=== PATIENT | female | born 1980 | race Caucasian/White ===

== ENCOUNTER 2017-01-26 07:29 | Day surgery (SDC) | payer BC ==
[2017-01-21 14:42] VITALS: BMI 22.8
[~2017-01-26 07:29] MED LIST: DEXAMETHASONE SOD PHOSPHATE 10 MG/ML 1 ML VIAL IV ONE; DEXAMETHASONE SOD PHOSPHATE 4 MG/ML 1 ML VIAL IV ONE; MIDAZOLAM 2 MG/2 ML VIAL IV PRN; ONDANSETRON 4 MG/2 ML VIAL IVP ONE; ceFAZolin 1,000 MG in DEXTROSE/WATER 1 50ML.BAG IV ONE
[2017-01-26] MEDS: OXYMETAZOLINE 0.05% NASL SPRAY 15 ML NASAL ONE ×6 (07:50→08:20)
[2017-01-26] MEDS: LACTATED RINGERS 1,000 ML IV SCH ×2 (08:10→10:05)
[2017-01-26] MEDS ORDERED: LIDOCAINE 1% INJ 10MG/ML (20 ML MDV) ONE (08:44)
[2017-01-26] MEDS ORDERED: fentaNYL (PF) 50 MCG/ML 2 ML AMP ONE (08:44)
[2017-01-26] MEDS ORDERED: SUCCINYLCHOLINE CHLORIDE 100 MG/5 ML SYR IV ONE (08:44)
[2017-01-26] MEDS ORDERED: MIDAZOLAM 2 MG/2 ML VIAL ONE (08:44)
[2017-01-26] MEDS ORDERED: PROPOFOL 10 MG/ML 20 ML VIAL IV ONE (08:44)
[2017-01-26] MEDS ORDERED: LIDOCAINE 1%-EPI 1:100,000 20 ML VIAL SUBMUCOSAL ONE ×2 (09:06)
--- NOTE | 2017-01-26 09:51 | P.OP ---
Date of Procedure: 01/26/17 Preoperative Diagnosis: Deviated nasal septum Inferior turbinate hypertrophy Chronic sinusitis Postoperative Diagnosis: Same Procedure(s) Performed: Septoplasty Outfracture and submucous resection of the inferior turbinates Bilateral endoscopic sinus surgery including bile max antrostomy with removal of tissue from the maxillary sinuses, bilateral anterior and posterior ethmoidectomy, right judith bullectomy Anesthesia: RAFIA Surgeon: Carl Aguiar Estimated Blood Loss (ml): 100 Pathology: other (Nasal septoplasty and sinus contents) Condition: stable Disposition: PACU Indications for Procedure: This is a 36-year-old white female who has chronic nasal airway obstruction congestion and drainage as well as recurrent sinus infections Operative Findings: Nasal septum deviated to the left, inferior turbinate hypertrophy bilaterally, chronic sinusitis involving the maxillary ostium bilaterally which were obstructed small polyps in the bilateral maxillary sinuses and mucosal thickening throughout the ethmoid sinuses as well as a right judith bullosa cell Description of Procedure: The patient was brought in the operative suite and placed in a supine position. The patient underwent induction of general anesthesia with oral endotracheal intubation without difficulty. The orbits were in the operating field for monitoring throughout the case. The computed tomography scan was on the computer screen for review throughout the case. 1% lidocaine with 1 100,000 epinephrine was infused submucosally both sides nasal septum lateral nasal webber anterior tips the middle turbinates bilaterally. While this was taking vasoconstrictive effect the inferior turbinates were infractured with the [place] elevator partial submucous resection inferior turbinates performed with microdebrider 2 mm blade removing a portion of the submucosal soft tissue and inferior turbinate bone and then outfractured with [place] elevator. A left hemitransfixion incision was made with the mucoperichondrial and mucoperiosteal flap on the left elevated. Bony cartilaginous junction was disarticulated and the mucoperiosteal flap on the right was elevated. Bony nasal septal deformities were removed Shayla forceps. An inferior cartilaginous strip was removed leaving a full 1.5 centimeter caudal strut. Checking intranasally this corrected nasal septal deformities and the hemitransfixion incision was closed running 4-0 chromic suture. Full endoscopic visualization was then performed and inspection with the 0 endoscope. Beginning on the left the middle turbinate was medialized with a [place] elevator. Next ostium was located with a ballpoint probe and infundibulotomy was performed followed by uncinectomy. The maxillary sinus was opened at the expense of the anterior posterior fontanelle taking care anteriorly not to injure the lacrimal bone. Infundibulotomy and uncinectomy were performed with microdebrider. Maxillary sinus evaluated with the 30 endoscope and small polyps removed with giraffe forceps. An anterior and posterior fontanelle were then performed from anterior to posterior with the microdebrider with the roof the anterior ethmoid air cells cleaned with up- biting [place] forceps. The nasofrontal duct was noted to be open. Attention was then turned to the right where the procedures were followed as they were on the left with the addition of a judith judith bullectomy opening the lateral one half of the middle turbinate. Infundibulotomy uncinectomy maxillary antrostomy with removal of tissue from the maxillary sinus anterior posterior ethmoidectomy were performed as they were on the left. Once this completed a combination of standard and firm nasal pore nasal dressings were placed in the middle meatus under direct visualization. Sarmiento airway splint was coated bacitracin ointment were placed in nasal cavities and sutured trans- septally with a 4-0 Vicryl suture. Patient was suctioned in oral gastric fashion and was then allowed to emerge from general anesthesia having tolerated procedure well she was extubated in the operating suite and transferred to postop recovery area in satisfactory condition.
[2017-01-26] MEDS ORDERED: METOCLOPRAMIDE 5 MG/ML 2 ML VIAL IVP ONE (09:58)
[2017-01-26 10:03] VITALS: TEMP 98
[2017-01-26] MEDS ORDERED: PROMETHAZINE INJ 25 MG/ML 1 ML VIAL IVPB ONE (10:06)
[2017-01-26 10:11] VITALS: RESP 16
[2017-01-26] MEDS: HYDROmorphone 1 MG/ML 1 ML SYRINGE IVP PRN ×2 (10:13→10:26)
[2017-01-26 11:51] VITALS: BP 132/83; PULSE 98
[2017-01-26] MEDS ORDERED: LACTATED RINGERS 1,000 ML IV ONE (12:17)
== END 2017-01-26 13:01 | disposition home or self-care (01) ==
LOC: OR 07:29
PROVIDERS: ATTEND Otolaryngology
DX: J32.8 Other chronic sinusitis (principal); J34.2 Deviated nasal septum; J34.3 Hypertrophy of nasal turbinates; F98.8 Other specified behavioral and emotional disorders with onset usually occurring in childhood and adolescence; Z79.899 Other long term (current) drug therapy
CPT/HCPCS: 81025; 88305; 88300; 30140; 30520; 31267; 31255; J2250; J1100; J2550; J2765; J2405; J2001; J3010; J1170; J0690; J0330; J2704

== ENCOUNTER → 2020-10-18 | Outpatient (CLI) | payer BC | END | disposition home or self-care (01) | LOC: LABMAIN 07:41 | PROVIDERS: ATTEND Emergency Medicine | DX: R05 Cough (principal) | CPT/HCPCS: 87635 ==

== ENCOUNTER 2021-04-29 01:23 | Emergency (ER) | payer BC ==
[2021-04-29] MEDS ORDERED: ONDANSETRON 4 MG ODT STARTER PACK 2 TAB BTL PO STA (01:34)
[2021-04-29] MEDS ORDERED: KETOROLAC 15 MG/ML 1 ML VIAL IM STA (01:34)
[2021-04-29] MEDS ORDERED: DEXAMETHASONE SOD PHOSPHATE 10 MG/ML 1 ML VIAL IM STA (01:34)
[2021-04-29 01:35] VITALS: BP 159/81; PULSE 91; RESP 18; TEMP 98.4
--- NOTE | 2021-04-29 01:35 | ED ---
General Adult HPI - General Stated complaint: ENT Time Seen by Provider: 04/29/21 01:25 - History of Present Illness Initial comments: 40 year-old female patient with history significant for environmental allergies presents to the emergency department for evaluation of "sinus" headache. States she is having pain over her maxillary and frontal region. Also reports pain down the left side of her head to her neck. Reports nasal congestion and head pressu re. Denies any fever or chills. Denies blurred or double vision. Reports some dizziness with bending over. States this headache is similar to sinus headaches she has had in the past. Denies any new symptoms. She is requesting injection of decadron, states this has worked well for her in the past. - Related Data Home Medications Medication Instructions Recorded Confirmed Aspirin/Acetaminophen/Caffeine 1 each PO DIRECTED PRN 01/21/17 01/26/17 [Excedrin Migraine Caplet] Cetirizine HCl [Zyrtec] 10 mg PO DAILY 01/21/17 01/26/17 Dextroamphetamine/Amphetamine 20 mg PO BID 01/21/17 01/26/17 [Adderall] Ibuprofen [Motrin] 200 - 400 mg PO Q6HR PRN 01/21/17 01/26/17 Melatonin 2.5 mg PO HS 01/21/17 01/26/17 Allergies Allergy/AdvReac Type Severity Reaction Status Date / Time No Known Allergies Allergy Verified 04/29/21 01:33 Review of Systems ROS Statement: Those systems with pertinent positive or pertinent negative responses have been documented in the HPI. ROS Other: All systems not noted in ROS Statement are negative. Past Medical History Past Medical History: Thyroid Disorder Additional Past Medical History / Comment(s): SINUS PROB, FOUNTAIN'S. ASH'S, NO TX YET. VARICOSE VEINS. History of Any Multi-Drug Resistant Organisms: None Reported Past Surgical History: Tonsillectomy Additional Past Surgical History / Comment(s): VEIN STRIPPING X2. LASIK RT EYE. Past Anesthesia/Blood Transfusion Reactions: No Reported Reaction Additional Past Anesthesia/Blood Transfusion Reaction / Comment(s): PONV R/T PAIN RX GIVEN IV. Past Psychological History: ADD/ADHD Past Alcohol Use History: Occasional Additional Past Alcohol Use History / Comment(s): SMOKED 15 YRS, 1 PPD EST, QUIT 08/2014. Past Drug Use History: None Reported - Past Family History Mother Family Medical History: No Reported History General Exam General appearance: alert, in no apparent distress, other (This is a well- developed, well-nourished adult female patient in no acute distress.) Eye exam: Present: normal appearance, PERRL, EOMI. Absent: scleral icterus, conjunctival injection, periorbital swelling ENT exam: Present: normal exam, normal oropharynx, mucous membranes moist. Absent: TM's normal bilaterally (There is fluid behind right tympanic membranes) Respiratory exam: Present: normal lung sounds bilaterally. Absent: respiratory distress, wheezes, rales, rhonchi, stridor Cardiovascular Exam: Present: regular rate, normal rhythm, normal heart sounds. Absent: systolic murmur, diastolic murmur, rubs, gallop, clicks Neurological exam: Present: alert, oriented X3, CN II-XII intact Psychiatric exam: Present: normal affect, normal mood Skin exam: Present: warm, dry, intact, normal color. Absent: rash Course Vital Signs 04/29/21 01:33 Temperature 98.4 F Pulse Rate 91 Respiratory 18 Rate Blood Pressure 159/81 O2 Sat by Pulse 99 Oximetry Medical Decision Making - Medical Decision Making 40-year-old female patient presents to the emergency department today for angela luation of sinus headache. Requesting injection of Decadron. Physical examination is unremarkable. She is neurologically intact with no focal deficits. She is given an injection of Decadron and Toradol. She'll be discharged HER primary care physician for recheck in 1-2 days. Return parameters discussed in detail. She verbalizes understanding and agrees with this plan. My attending is Dr. Abraham. Disposition Clinical Impression: Sinusitis, Headache Disposition: HOME SELF-CARE Condition: Good Instructions (If sedation given, give patient instructions): Sinusitis (ED), Acute Headache (ED) Is patient prescribed a controlled substance at d/c from ED?: No Referrals: Julien Franco DO [Primary Care Provider] - 1-2 days Time of Disposition: 01:35
== END 2021-04-29 01:49 | disposition home or self-care (01) ==
LOC: EC 01:23
DX: J32.9 Chronic sinusitis, unspecified (principal); M54.2 Cervicalgia; R42 Dizziness and giddiness; F90.9 Attention-deficit hyperactivity disorder, unspecified type; Z79.82 Long term (current) use of aspirin; Z79.1 Long term (current) use of non-steroidal anti-inflammatories (NSAID); Z87.891 Personal history of nicotine dependence
CPT/HCPCS: 99283; 96372 ×2; J1100; J1885; S0119

== ENCOUNTER 2021-12-23 03:41 | Emergency (ER) | payer BC ==
[2021-12-23 03:51] VITALS: BP 161/90; PULSE 90; RESP 19; TEMP 98
[2021-12-23] MEDS ORDERED: DEXAMETHASONE SOD PHOSPHATE 10 MG/ML 1 ML VIAL IM STA (03:51)
--- NOTE | 2021-12-23 04:20 | ED ---
URI HPI - General Chief Complaint: Upper Respiratory Infection Stated Complaint: Headache Time Seen by Provider: 12/23/21 04:19 Source: patient Mode of arrival: ambulatory - History of Present Illness MD Complaint: nasal congestion, sinus pain -: days(s) Severity: moderate Quality: dull, aching Consistency: constant Improves With: nothing Worsens With: nothing Associated Symptoms: denies other symptoms - Related Data Home Medications Medication Instructions Recorded Confirmed Aspirin/Acetaminophen/Caffeine 1 each PO DIRECTED PRN 01/21/17 01/26/17 [Excedrin Migraine Caplet] Cetirizine HCl [Zyrtec] 10 mg PO DAILY 01/21/17 01/26/17 Dextroamphetamine/Amphetamine 20 mg PO BID 01/21/17 01/26/17 [Adderall] Ibuprofen [Motrin] 200 - 400 mg PO Q6HR PRN 01/21/17 01/26/17 Melatonin 2.5 mg PO HS 01/21/17 01/26/17 Allergies Allergy/AdvReac Type Severity Reaction Status Date / Time No Known Allergies Allergy Verified 12/23/21 03:51 Review of Systems ROS Statement: Those systems with pertinent positive or pertinent negative responses have been documented in the HPI. ROS Other: All systems not noted in ROS Statement are negative. Constitutional: Denies: fever, chills Eyes: Denies: eye pain, vision change ENT: Reports: congestion. Denies: ear pain, throat pain, hearing loss, epistaxis Respiratory: Denies: cough, dyspnea Past Medical History Past Medical History: Thyroid Disorder Additional Past Medical History / Comment(s): SINUS PROB, FOUNTAIN'S. ASH'S, NO TX YET. VARICOSE VEINS. History of Any Multi-Drug Resistant Organisms: None Reported Past Surgical History: Tonsillectomy Additional Past Surgical History / Comment(s): VEIN STRIPPING X2. LASIK RT EYE. Past Anesthesia/Blood Transfusion Reactions: No Reported Reaction Additional Past Anesthesia/Blood Transfusion Reaction / Comment(s): PONV R/T PAIN RX GIVEN IV. Past Psychological History: ADD/ADHD Smoking Status: Never smoker Past Alcohol Use History: Occasional Past Drug Use History: None Reported - Past Family History Mother Family Medical History: No Reported History General Exam General appearance: alert, in no apparent distress Head exam: Present: atraumatic, normocephalic Eye exam: Present: normal appearance, EOMI. Absent: scleral icterus, conjunctival injection ENT exam: Present: normal oropharynx, mucous membranes moist Neurological exam: Present: alert Skin exam: Present: warm, dry, intact, normal color. Absent: rash Course Vital Signs 12/23/21 03:48 Temperature 98 F Pulse Rate 90 Respiratory 19 Rate Blood Pressure 161/90 O2 Sat by Pulse 100 Oximetry Disposition Clinical Impression: Sinusitis Disposition: HOME SELF-CARE Condition: Good Instructions (If sedation given, give patient instructions): Sinusitis (ED) Is patient prescribed a controlled substance at d/c from ED?: No Referrals: Julien Franco DO [Primary Care Provider] - 1-2 days
== END 2021-12-23 04:20 | disposition home or self-care (01) ==
LOC: EC 03:41
DX: J32.9 Chronic sinusitis, unspecified (principal); F90.9 Attention-deficit hyperactivity disorder, unspecified type; Z79.82 Long term (current) use of aspirin; Z79.899 Other long term (current) drug therapy
CPT/HCPCS: 99283; 96372; J1100

== ENCOUNTER 2022-02-21 15:31 | Emergency (ER) | payer BC ==
[2022-02-21 15:50] VITALS: RESP 18
[2022-02-21] MEDS ORDERED: IBUPROFEN 600 MG TAB PO STA (16:38)
[2022-02-21] MEDS ORDERED: BEBTELOVIMAB (EUA) 175 MG/2 ML VIAL IV ONE (17:15)
--- NOTE | 2022-02-21 18:18 | ED ---
General Adult HPI - General Chief complaint: Upper Respiratory Infection Stated complaint: Bodyaches,Fatigue,Sore Throat Time Seen by Provider: 02/21/22 16:01 Source: patient, RN notes reviewed Mode of arrival: ambulatory Limitations: no limitations - History of Present Illness Initial comments: 41-year-old female presents to the emergency department for evaluation of cough, sore throat, and body aches. Patient states she had a positive Covid test at home and is requesting the monoclonal antibody infusion. Patient is unvaccinated with her primary series, but is not boosted. 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 Denies shortness of breath, difficulty breathing, chest tightness, abdominal pain, nausea, vomiting, dysuria, and hematuria. - Related Data Home Medications Medication Instructions Recorded Confirmed Aspirin/Acetaminophen/Caffeine 1 each PO DIRECTED PRN 01/21/17 01/26/17 [Excedrin Migraine Caplet] Cetirizine HCl [Zyrtec] 10 mg PO DAILY 01/21/17 01/26/17 Dextroamphetamine/Amphetamine 20 mg PO BID 01/21/17 01/26/17 [Adderall] Ibuprofen [Motrin] 200 - 400 mg PO Q6HR PRN 01/21/17 01/26/17 Melatonin 2.5 mg PO HS 01/21/17 01/26/17 Allergies Allergy/AdvReac Type Severity Reaction Status Date / Time No Known Allergies Allergy Verified 02/21/22 15:51 Review of Systems ROS Statement: Those systems with pertinent positive or pertinent negative responses have been documented in the HPI. ROS Other: All systems not noted in ROS Statement are negative. Past Medical History Past Medical History: Thyroid Disorder Additional Past Medical History / Comment(s): SINUS PROB, FOUNTAIN'S. DEEJAY'S, NO [place] YET. VARICOSE VEINS. History of Any Multi-Drug Resistant Organisms: None Reported Past Surgical History: Tonsillectomy Additional Past Surgical History / Comment(s): VEIN STRIPPING X2. LASIK RT EYE. Past Anesthesia/Blood Transfusion Reactions: No Reported Reaction Additional Past Anesthesia/Blood Transfusion Reaction / Comment(s): PONV R/T PAIN RX GIVEN IV. Past Psychological History: ADD/ADHD Smoking Status: Never smoker Past Alcohol Use History: Occasional Past Drug Use History: None Reported - Past Family History Mother Family Medical History: No Reported History General Exam Limitations: no limitations (Well-developed, well-nourished female in no acute distress. Initial temperature 97.6, pulse 102, respirations 18, blood pressure 151/101, pulse ox 100% on room air.) General appearance: alert, in no apparent distress ENT exam: Present: normal exam, normal oropharynx, mucous membranes moist Respiratory exam: Present: normal lung sounds bilaterally. Absent: respiratory distress, wheezes, rales, rhonchi, stridor, chest wall tenderness Cardiovascular Exam: Present: regular rate, normal rhythm, normal heart sounds. Absent: systolic murmur, diastolic murmur, rubs, gallop, clicks GI/Abdominal exam: Present: soft, normal bowel sounds. Absent: distended, tenderness, guarding, rebound, rigid Neurological exam: Present: alert, oriented X3, CN II-XII intact Psychiatric exam: Present: normal affect, normal mood Skin exam: Present: warm, dry, intact, normal color. Absent: rash Course Vital Signs 02/21/22 15:44 Temperature 97.6 F Pulse Rate 102 H Respiratory 18 Rate Blood Pressure 151/101 O2 Sat by Pulse 100 Oximetry - Reevaluation(s) Reevaluation #1: 02/21/22 16:45 Patient qualifies for her monoclonal antibody infusion based on positive test, BMI greater than 25, and hypertension. Risks and benefits were discussed. Patient is requesting infusion. 02/21/22 18:15 Upon reevaluation, patient is resting comfortably and tolerated infusion without any adverse side effects. We've continued to monitor and will discharge one hour post-infusion. Medical Decision Making - Medical Decision Making 41-year-old female with a past medical history of Deejay's presents to the emergency department requesting that the monoclonal antibody infusion after testing positive for Covid. Upon exam, patient is well-appearing and in no acute distress. Her room air saturation is greater than 95% and she is afebrile. Lung sounds are clear to auscultation. Covid test is positive. She qualifies for infusion based on BMI and hypertension. Patient tolerated infusion without any adverse side effects. She was given Motrin for body aches. Instructed to follow up with her PCP for a recheck via telephone or video visit. 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 Return parameters were discussed in detail. Patient verbalizes understanding and agrees with this plan. Attending:Sonia. - Lab Data Lab Results 02/21/22 Range/Units 16:41 Coronavirus (PCR) Detected A (Not Detectd) Disposition Clinical Impression: COVID-19 Disposition: HOME SELF-CARE Condition: Stable Instructions (If sedation given, give patient instructions): COVID-19 (Coronavirus Disease 2019) (ED) Additional Instructions: Alternate Tylenol and Motrin as needed for fever. Isolate at home and follow return to work parameters as detailed by your employer. You are provided with a work note. Follow-up with your PCP for a recheck via telephone or video visit if needed this week. Return to the emergency department with any new, worsening, or concerning symptoms. Is patient prescribed a controlled substance at d/c from ED?: No Referrals: Julien Franco DO [Primary Care Provider] - 1-2 days Time of Disposition: 18:40
[2022-02-21 19:53] VITALS: BP 138/96; PULSE 87; TEMP 97.9
== END 2022-02-21 18:40 | disposition home or self-care (01) ==
LOC: EC 15:31
DX: U07.1 COVID-19 (principal); E07.9 Disorder of thyroid, unspecified; F90.9 Attention-deficit hyperactivity disorder, unspecified type; Z79.82 Long term (current) use of aspirin
CPT/HCPCS: 99283; 87635; Q0222

== ENCOUNTER 2023-09-19 17:34 | Observation (INO) | payer BC ==
[2023-09-19] MEDS ORDERED: ONDANSETRON 4 MG/2 ML VIAL IVP STA (18:50)
[2023-09-19] MEDS ORDERED: MORPHINE SULFATE 4 MG/ML SYRINGE IV STA (18:50)
--- NOTE | 2023-09-19 19:02 | ED ---
General Adult HPI - General Chief complaint: GI Bleed Stated complaint: rectum heavy bleeding stomach pain Time Seen by Provider: 09/19/23 18:06 Source: patient Mode of arrival: wheelchair Limitations: no limitations - History of Present Illness Initial comments: Dictation was produced using [employer] dictation software. please excuse any grammatical, word or spelling errors. Chief Complaint: 43-year-old female presents emergency Department with abdominal pain and bright red blood per rectum History of Present Illness: Is a 43-year-old female presents emergency Department with abdominal pain and bright red blood per rectum since yesterday. Patient states that she has been having bright red blood per rectum since yesterday. States that she's been having crampy lower abdominal pain. Denies any history of anticoagulation use. States that she's been passing blood clots. She does not complain of any rectal pain. No history of hemorrhoids. Has not had a colonoscopy. The ROS documented in this emergency department record has been reviewed and confirmed by me. Those systems with pertinent positive or negative responses have been documented in the HPI. All other systems are other negative and/or noncontributory. - Related Data Home Medications Medication Instructions Recorded Confirmed Aspirin/Acetaminophen/Caffeine 1 each PO DIRECTED PRN 01/21/17 01/26/17 [Excedrin Migraine Caplet] Cetirizine HCl [Zyrtec] 10 mg PO DAILY 01/21/17 01/26/17 Dextroamphetamine/Amphetamine 20 mg PO BID 01/21/17 01/26/17 [Adderall] Ibuprofen [Motrin] 200 - 400 mg PO Q6HR PRN 01/21/17 01/26/17 Melatonin 2.5 mg PO HS 01/21/17 01/26/17 Allergies Allergy/AdvReac Type Severity Reaction Status Date / Time No Known Allergies Allergy Verified 09/19/23 18:03 Review of Systems ROS Statement: Those systems with pertinent positive or pertinent negative responses have been documented in the HPI. ROS Other: All systems not noted in ROS Statement are negative. Past Medical History Past Medical History: Thyroid Disorder Additional Past Medical History / Comment(s): SINUS PROB, FOUNTAIN'S. ASH'S, NO TX YET. VARICOSE VEINS. History of Any Multi-Drug Resistant Organisms: None Reported Past Surgical History: Tonsillectomy Additional Past Surgical History / Comment(s): VEIN STRIPPING X2. LASIK RT EYE. Past Anesthesia/Blood Transfusion Reactions: No Reported Reaction Additional Past Anesthesia/Blood Transfusion Reaction / Comment(s): PONV R/T PAIN RX GIVEN IV. Past Psychological History: ADD/ADHD Smoking Status: Never smoker Past Alcohol Use History: Occasional Past Drug Use History: None Reported - Past Family History Mother Family Medical History: No Reported History General Exam - General Exam Comments Initial Comments: PHYSICAL EXAM: General Impression: Alert and oriented x3, not in acute distress HEENT: Normocephalic atraumatic, extra-ocular movements intact, pupils equal and reactive to light bilaterally, mucous membranes moist. Cardiovascular: Heart regular rate and rhythm Chest: Able to complete full sentences, no retractions, no tachypnea Abdomen: abdomen soft, palpatory tenderness to the lower abdomen, non-distended, no organomegaly Musculoskeletal: Pulses present and equal in all extremities, no peripheral edema Motor: no focal deficits noted Neurological: CN II-XII grossly intact, no focal motor or sensory deficits noted Skin: Intact with no visualized rashes Psych: Normal affect and mood Rectal exam deferred Limitations: no limitations Course Vital Signs 09/19/23 09/19/23 17:58 18:59 Temperature 97.7 F Pulse Rate 101 H 68 Respiratory 16 16 Rate Blood Pressure 154/86 156/103 O2 Sat by Pulse 98 98 Oximetry Medical Decision Making - Medical Decision Making Was pt. sent in by a medical professional or institution ([facility] Richards, EMERGENCY ROOM REGISTERED NURSE, urgent care, hospital, or fdc...) When possible be specific @ -No Did you speak to anyone other than the patient for history (EMS, parent, family, police, friend...)? What history was obtained from this source @ -No Did you review nursing and triage notes (agree or disagree)? Why? @ -I reviewed and agree with nursing and triage notes Were old charts reviewed (outside hosp., previous admission, EMS record, old EKG, old radiological studies, urgent care reports/EKG's, fdc records)? Report findings @ -No old charts were reviewed Differential Diagnosis (chest pain, altered mental status, abdominal pain women, abdominal pain men, vaginal bleeding, musculoskeletal, weakness, fever, dyspnea, syncope, headache, dizziness, GI bleed, back pain, seizure, CVA, palpatations, mental health)? @ -Differential Abdominal Pain Women: Appendicitis, Cholecystitis, diverticulosis, ischemic bowel, pancreatitis, hepa titis, UTI, gastroenteritis, AAA, incarcerated hernia, bowel obstruction, constipation, inflammatory bowel, hepatitis, peptic ulcer disease, splenic infarction, perforated viscus, vulvitis, ovarian torsion, PID, kidney stone, placenta abruption, this is not meant to be an all-inclusive list EKG interpreted by me (3pts min.). @ -None done X-rays interpreted by me (1pt min.). @ -None done CT interpreted by me (1pt min.). @ -CT of the abdomen and pelvis shows colitis U/S interpreted by me (1pt. min.). @ -None done What testing was considered but not performed or refused? (CT, X-rays, U/S, labs)? Why? @ -None What meds were considered but not given or refused? Why? @ -None Did you discuss the management of the patient with other professionals (pro fessionals i.e. , PA, EMERGENCY ROOM REGISTERED NURSE, lab, RT, psych nurse, psychiatric social worker, epic cadence specialists, teacher, port patrol officer, welfare case worker)? Give summary @ -Case discussed with hospitalist for admission Was smoking cessation discussed for >3mins.? @ -No Was critical care preformed (if so, how long)? @ -No Were there social determinants of health that impacted care today? How? (Homelessness, low income, unemployed, alcoholism, drug addiction, transportation, low edu. Level, literacy, decrease access to med. care, intermediate, rehab)? @ -No Was there de-escalation of care discussed even if they declined (Discuss DNR or withdrawal of care, Hospice)? DNR status @ -No What co-morbidities impacted this encounter? (DM, HTN, Smoking, COPD, CAD, Cancer, CVA, ARF, Chemo, Hep., AIDS, mental health diagnosis, sleep apnea, morbid obesity)? @ -None Was patient admitted / discharged? Hospital course, mention meds given and route, prescriptions, significant lab abnormalities, going to OR and other pertinent info. @ -43-year-old female presents emergency Department with abdominal pain and bright red blood per rectum. States that her symptoms have been increasing in intensity and severity since yesterday. Vital signs upon arrival are within acceptable limits. Labs are unremarkable. No leukocytosis. Computed tomography scan of the abdomen and pelvis shows colitis. Unclear cause of colitis. Disposition options were discussed with patient. We do [facility] this [facility]. Patient is agreeable for observation admission with GI consultation. Undiagnosed new problem with uncertain prognosis? @ -No Drug Therapy requiring intensive monitoring for toxicity (Heparin, Nitro, Insulin, Cardizem)? @ -No Were any procedures done? @ -No Diagnosis/symptom? Acute, or Chronic, or Acute on Chronic? Uncomplicated (without systemic symptoms) or Complicated (systemic symptoms)? @ -Colitis Side effects of treatment? @ -No Exacerbation, Progression, or Severe Exacerbation? @ -No Poses a threat to life or bodily function? How? (Chest pain, USA, CA, pneumonia, PE, COPD, DKA, ARF, appy, cholecystitis, CVA, Diverticulitis, Homicidal, Suicidal, threat to staff... and all critical care pts) @ -yes - Lab Data Result diagrams: 09/19/23 18:40 09/19/23 18:40 Lab Results 09/19/23 09/19/23 09/19/23 Range/Units 18:40 18:40 18:40 WBC 10.6 (3.8-10.6) k/uL RBC 4.53 (3.80-5.40) m/uL Hgb 14.1 (11.4-16.0) gm/dL Hct 42.4 (34.0-46.0) % MCV 93.7 (80.0-100.0) fL MCH 31.1 (25.0-35.0) pg MCHC 33.2 (31.0-37.0) g/dL RDW 12.4 (11.5-15.5) % Plt Count 311 (150-450) k/uL MPV 7.6 Neutrophils % 72 % Lymphocytes % 20 % Monocytes % 5 % Eosinophils % 1 % Basophils % 0 % Neutrophils # 7.6 (1.3-7.7) k/uL Lymphocytes # 2.1 (1.0-4.8) k/uL Monocytes # 0.6 (0-1.0) k/uL Eosinophils # 0.1 (0-0.7) k/uL Basophils # 0.0 (0-0.2) k/uL Sodium 138 (137-145) mmol/L Potassium 3.7 (3.5-5.1) mmol/L Chloride 103 (98-107) mmol/L Carbon Dioxide 26 (22-30) mmol/L Anion Gap 9 mmol/L BUN 8 (7-17) mg/dL Creatinine 0.60 (0.52-1.04) mg/dL Est GFR (CKD-EPI)AfAm >90 (>60 ml/min/1.73 sqM) Est GFR (CKD-EPI)NonAf >90 (>60 ml/min/1.73 sqM) Glucose 97 (74-99) mg/dL Calcium 9.2 (8.4-10.2) mg/dL Total Bilirubin 0.7 (0.2-1.3) mg/dL AST 24 (14-36) U/L ALT 17 (4-34) U/L Alkaline Phosphatase 63 (38-126) U/L Total Protein 7.0 (6.3-8.2) g/dL Albumin 4.3 (3.5-5.0) g/dL Blood Type Blood Type Confirm A Positive Blood Type Recheck Bld Type Recheck Status Antibody Screen Spec Expiration Date 09/19/23 Range/Units 18:45 WBC (3.8-10.6) k/uL RBC (3.80-5.40) m/uL Hgb (11.4-16.0) gm/dL Hct (34.0-46.0) % MCV (80.0-100.0) fL MCH (25.0-35.0) pg MCHC (31.0-37.0) g/dL RDW (11.5-15.5) % Plt Count (150-450) k/uL MPV Neutrophils % % Lymphocytes % % Monocytes % % Eosinophils % % Basophils % % Neutrophils # (1.3-7.7) k/uL Lymphocytes # (1.0-4.8) k/uL Monocytes # (0-1.0) k/uL Eosinophils # (0-0.7) k/uL Basophils # (0-0.2) k/uL Sodium (137-145) mmol/L Potassium (3.5-5.1) mmol/L Chloride (98-107) mmol/L Carbon Dioxide (22-30) mmol/L Anion Gap mmol/L BUN (7-17) mg/dL Creatinine (0.52-1.04) mg/dL Est GFR (CKD-EPI)AfAm (>60 ml/min/1.73 sqM) Est GFR (CKD-EPI)NonAf (>60 ml/min/1.73 sqM) Glucose (74-99) mg/dL Calcium (8.4-10.2) mg/dL Total Bilirubin (0.2-1.3) mg/dL AST (14-36) U/L ALT (4-34) U/L Alkaline Phosphatase (38-126) U/L Total Protein (6.3-8.2) g/dL Albumin (3.5-5.0) g/dL Blood Type A Positive Blood Type Confirm Blood Type Recheck No Previous Record Bld Type Recheck Status CABO Indicated Antibody Screen NEGATIVE Spec Expiration Date 09/22/20232339 Disposition Clinical Impression: Colitis Disposition: ADMITTED IP TO THIS [facility] Condition: Fair Referrals: Julien Franco DO [Primary Care Provider] - 1-2 days Decision Time: 20:42
[2023-09-19 19:12] LABS: Basophils % (A) 0 %; Eosinophils # (A) 0.1 k/uL (0-0.7); Eosinophils % (A) 1 %; HCT 42.4 % (34.0-46.0); HGB 14.1 gm/dL (11.4-16.0); Lymphocytes # (A) 2.1 k/uL (1.0-4.8); Lymphocytes % (A) 20 %; MCH 31.1 pg (25.0-35.0); MCHC 33.2 g/dL (31.0-37.0); MCV 93.7 fL (80.0-100.0); Mean Platelet Volume 7.6; Monocytes # (A) 0.6 k/uL (0-1.0); Monocytes % (A) 5 %; Neutrophils # (A) 7.6 k/uL (1.3-7.7); Neutrophils % (A) 72 %; Platelet Count 311 k/uL (150-450); RBC 4.53 m/uL (3.80-5.40); RDW 12.4 % (11.5-15.5); WBC 10.6 k/uL (3.8-10.6)
[2023-09-19 19:28] LABS: ALT 17 U/L (4-34); AST 24 U/L (14-36); African American GFR (CKD) >90 (>60 ml/min/1.73 sqM); Albumin 4.3 g/dL (3.5-5.0); Alkaline Phosphatase 63 U/L (38-126); Anion Gap 9 mmol/L; Blood Urea Nitrogen 8 mg/dL (7-17); Calcium 9.2 mg/dL (8.4-10.2); Carbon Dioxide 26 mmol/L (22-30); Chloride 103 mmol/L (98-107); Glucose 97 mg/dL (74-99); Non-African American GFR(CKD) >90 (>60 ml/min/1.73 sqM); Potassium 3.7 mmol/L (3.5-5.1); Sodium 138 mmol/L (137-145); Total Bilirubin 0.7 mg/dL (0.2-1.3)
--- NOTE | 2023-09-19 20:26 | CT ---
EXAMINATION TYPE: CT abdomen pelvis w con CT DLP: 768.5 mGycm, Automated exposure control for dose reduction was used. DATE OF EXAM: 09/19/2023 8:11 PM COMPARISON: None CLINICAL INDICATION:Female, 43 years old with history of abdominal plain and BRBPR; Blood in stool si nce last night, unable to make a bowel movement- lower pelvic pain TECHNIQUE: Axial CT of the ;CT abdomen pelvis w con;Sagittal and coronal reformats were created on a separate workstation. Contrast used:100 cc mL of Isovue 300 with IV Contrast, (none if empty) Oral contrast used: without Oral Contrast (none if empty) FINDINGS: LOWER CHEST: Unremarkable ABDOMEN LIVER: Unremarkable GALLBLADDER AND BILE DUCTS: Unremarkable. PANCREAS: Unremarkable. SPLEEN: Unremarkable. ADRENAL GLANDS: Unremarkable. KIDNEYS AND URETERS: No evidence of hydronephrosis or renal calculus. The ureters are unremarkable. PELVIS BLADDER: Unremarkable REPRODUCTIVE: Unremarkable. ABDOMEN & PELVIS STOMACH AND BOWEL: No evidence of bowel obstruction. Circumferential wall thickening of a short segme nt of the descending colon with circumferential wall thickening up to 8 mm short segment stricture no ndistended colon at the sigmoid descending colon junction series 202 image 31. PERITONEUM/RETROPERITONEUM: No evidence of pneumoperitoneum or free fluid. VASCULATURE: No evidence of aortic aneurysm. MUSCULOSKELETAL: No acute osseous abnormalities small area of sclerosis within the L4 vertebrae measu ring 7 mm. LYMPH NODES: No gross evidence for lymphadenopathy. SOFT TISSUE/ABDOMINAL WALL: Fat-containing umbilical hernia. IMPRESSION: 1. Short segment colitis involving the descending colon no evidence for perforation, obstruction or organizing fluid collection. 2. 7 mm sclerotic focus in the L4 vertebrae which is nonspecific could represent bone island. Correl ate with history of malignancy.
[2023-09-19] MEDS ORDERED: ONDANSETRON 4 MG/2 ML VIAL IVP PRN (20:37)
[2023-09-19] MEDS ORDERED: NALOXONE 0.4 MG/ML 1 ML VIAL IV PRN (20:37)
[2023-09-19] MEDS: SODIUM CHLORIDE 0.9% 1,000 ML IV SCH (20:59)
[2023-09-19] MEDS: MORPHINE SULFATE 4 MG/ML SYRINGE IV PRN (22:06)
[2023-09-20] MEDS: MORPHINE SULFATE 4 MG/ML SYRINGE IV PRN (02:55)
[2023-09-20] MEDS: SODIUM CHLORIDE 0.9% 1,000 ML IV SCH (04:30)
[2023-09-20 08:04] VITALS: RESP 16
[2023-09-20 09:51] LABS: HCT 41.9 % (34.0-46.0); HGB 13.5 gm/dL (11.4-16.0); MCH 30.6 pg (25.0-35.0); MCHC 32.2 g/dL (31.0-37.0); Mean Platelet Volume 7.7; Platelet Count 266 k/uL (150-450); RBC 4.41 m/uL (3.80-5.40); RDW 12.7 % (11.5-15.5); WBC 8.3 k/uL (3.8-10.6)
[2023-09-20] MEDS ORDERED: ENOXAPARIN 40 MG/0.4 ML SYRINGE SQ SCH (10:30)
[2023-09-20] MEDS ORDERED: ACETAMINOPHEN TAB 500 MG TAB PO PRN (11:04)
[2023-09-20] MEDS ORDERED: traMADol 50 MG TAB PO STA (11:11)
[2023-09-20] MEDS ORDERED: FAMOTIDINE 20 MG TAB PO SCH (11:30)
[2023-09-20] MEDS ORDERED: PIPERACILLIN-TAZOBACTAM 3.375 GM in SODIUM CHLORIDE 0.9% 100 ML IVPB SCH (12:00)
--- NOTE | 2023-09-20 14:01 | P.CONS ---
History of Present Illness - Reason for Consult Consult date: 09/20/23 Abdominal pain, colitis Requesting physician: Braxton Neil - Chief Complaint Abdominal pain, blood per rectum - History of Present Illness Pleasant 43-year-old female who presented to the emergency department yesterday with concerns for lower abdominal cramping and bright red blood per rectum. She states Tuesday night she ate some dinner and went to bed she woke up she was 40 which go to the bathroom and got diaphoretic, she laid down on the bathroom floor. She started feeling better so went to lay down again. She got back up and had again lower abdominal cramping had a large bowel movement which was soft but formed and had no blood in it. Then 2 or 3 times through the night she did get up and have cramping and had bright red blood per rectum.also noted clots. Yesterday at 7 AM with the last time she had any further rectal bleeding. She came into the emergency department for further evaluation. She had a CT of the abdomen and pelvis with IV contrast that reported a short segment colitis involving descending colon. Gastroenterology was consulted for colitis and abdominal pain. She states she still getting some cramping in the lower abdomen and comes and goes. She's not had any further bowel movement or blood per rectum. No nausea or vomiting. She was nothing by mouth throughout the night. Denies any previous history of colitis, no previous colonoscopy. She has no family history of inflammatory bowel disease. She does state that she's had problems over the last 1-2 years with constipation and irregular bowel movements. States that actually yesterday morning she thought that she had to have more bowel movement and that she was just constipated so she took bottle mag citrate. She states she only had a small bowel movement following it. She denies any recent illnesses and no sick contacts. Denies any fevers or chills. WBC 8.3 hemoglobin 13.5 platelet count 266,000 sed rate 16 CRP less than 0.5 Review of Systems REVIEW OF SYSTEMS: CARDIOPULMONARY: No chest pain or shortness of breath. Gastrointestinal: Lower abdominal cramping. No nausea or vomiting. No hematemesis, coffee-ground emesis. Bright red rectal bleeding with clots. GENITOURINARY: No dysuria or hematuria. MUSCULOSKELETAL: Reports normal range of motion. SKIN: No rashes. No jaundice. ENDOCRINE: No chills, fevers. No excessive weight gain or loss. No polydipsia or polyuria. PSYCHIATRIC: Unremarkable. NEUROLOGY: No change in mental status. Denies dizziness, headache. ENT: Vision unremarkable. CONSTITUTIONAL: No recent weight loss. No fever, chills, night sweats. Past Medical History Past Medical History: Thyroid Disorder Additional Past Medical History / Comment(s): SINUS PROB, FOUNTAIN'S. ASH'S, NO TX YET. VARICOSE VEINS. History of Any Multi-Drug Resistant Organisms: None Reported Past Surgical History: Tonsillectomy Additional Past Surgical History / Comment(s): VEIN STRIPPING X2. LASIK RT EYE. Past Anesthesia/Blood Transfusion Reactions: No Reported Reaction Additional Past Anesthesia/Blood Transfusion Reaction / Comm: PONV R/T PAIN RX GIVEN IV. Past Psychological History: ADD/ADHD Smoking Status: Never smoker Past Alcohol Use History: Occasional Past Drug Use History: None Reported - Past Family History Mother Family Medical History: No Reported History Medications and Allergies Home Medications Medication Instructions Recorded Confirmed Type Dextroamphetamine/Amphetamine 20 mg PO BID 01/21/17 09/19/23 History [Adderall] Allergies Allergy/AdvReac Type Severity Reaction Status Date / Time No Known Allergies Allergy Verified 09/19/23 21:53 Physical Exam Vitals: Vital Signs Temp Pulse Pulse Resp BP BP Pulse Ox 09/20/23 07:54 97.5 F L 96 16 129/84 97 09/20/23 06:02 81 18 100/65 99 09/19/23 23:00 87 18 160/62 99 09/19/23 21:13 98 18 150/79 98 09/19/23 18:59 68 16 156/103 98 09/19/23 17:58 97.7 F 101 H 16 154/86 98 Intake and Output 09/19/23 09/20/23 09/20/23 22:59 06:59 14:59 Other: Weight 72.575 kg General appearance: The patient is alert, oriented, appears in no acute distress. HET: Head is normocephalic and atraumatic. Conjunctiva pink. Sclera anicteric. Neck: Supple without lymphadenopathy. Trachea midline. Heart: Regular. Lungs: Equal expansion, normal respiratory effort. Abdomen: Soft, nontender, nondistended with bowel sounds. No guarding or rigidity. Skin: No rashes. No jaundice. Extremities: Normal skin color and turgor. No pedal edema. Neurological: No focal deficits. Alert and oriented x3. Results CBC & Chem 7: 09/20/23 09:00 09/19/23 18:40 Comments: Abdominal x-ray with IV contrast reported short segment colitis involving the descending: No evidence for perforation, obstruction or organizing fluid collection. 7 mm sclerotic focus in the L4 vertebrae which is nonspecific could represent bone island. Correlate with history of malignancy. Assessment and Plan (1) Colitis Narrative/Plan: 43-year-old female presenting with abdominal pain and bright red blood per rectum with clots 3-4 episodes for 1 day duration. No associated nausea, vomiting, fever or chills. No previous history of colitis, inflammatory bowel disease and no previous colonoscopy. Unclear etiology however most likely ischemic colitis however cannot rule out infectious colitis. Inflammatory markers unremarkable. Patient has not had any further bleeding since yesterday morning she continues to have lower abdominal cramping. At this time we'll just treat symptomatically, remain on clear liquid diet. Follow up outpatient for colonoscopy. Current Visit: Yes Status: Acute Code(s): K52.9 - NONINFECTIVE GASTROENTERITIS AND COLITIS, UNSPECIFIED SNOMED Code(s): 86179793 Plan: 1. Continue symptomatic and supportive care 2. Patient may have clear liquid diet, advance diet slowly 3. Repeat CBC 4. Pain medication as needed 5. Protonix 40 mg daily 6. No further workup indicated at this time, patient will follow-up in the outpatient setting and discuss colonoscopy at that time. Thank you for this consultation. Patient is cleared from gastroenterology for discharge. May continue short course of antibiotics at discharge for [address] Harrison Bowie I agree with the dictator's note, documented as a scribe by Tammy Sanchez.
[2023-09-20 14:32] VITALS: BP 121/70; PULSE 75; TEMP 98.1
--- NOTE | 2023-09-20 20:43 | P.HPIM ---
History of Present Illness H&P Date: 09/20/23 Chief Complaint: Blood per rectum This is a pleasant 43-year-old patient follows with Dr. Franco. Chronic stable medical conditions include [place] HFR gene mutation. Patient's had a prior DVT and superficial vein thrombosis. Patient takes natural medications for the same including tumeric. Also has ADHD. Has been trying to cut back her medications. Does get bouts of sinusitis. 2 days ago patient and family members had burgers. She brought some back home. Vomited up the left over and had it. Later patient started having cramping in the lower abdomen. Middle of the night. Had a few episodes of passing blood.. Pain in the deep pelvic area. No fever no chills. Tired. Patient accompanied by her at the bedside. Review of systems: GEN.: Tired EYES: None HEENT: None NECK: None RESPIRATORY: Sinus headaches CARDIOVASCULAR: None GASTROINTESTINAL: As above GENITOURINARY: None MUSCULOSKELETAL: None LYMPHATICS: None HEMATOLOGICAL: None PSYCHIATRY: None NEUROLOGICAL: None Past medical history to include: Chronic intermittent sinusitis. ADHD. GERD. [place] HFR gene mutation with prior DVT. Social history: Respiratory therapist. Alcohol occasionally. No smoking. . Physical examination: VITAL SIGNS: 97.7, 101, 16, 150/86, 98% room air upon presentation GENERAL: BMI 23.6, laying bed slightly tired appearing. EYES: Pupils equal. Conjunctiva normal. HEENT: External appearance of nose and ears normal, oral cavity grossly normal. NECK: JVD not raised; masses not palpable. HEART: First and second heart sounds are normal; no edema. LUNGS: Respiratory rate normal; clear to auscultation. ABDOMEN: Soft, mild left lower quadrant tenderness, liver spleen not palpable, no masses palpable. PSYCH: Alert and oriented x3; mood and affect normal. MUSCULOSKELETAL:No Clubbing/cyanosis;muscles-grossly intact NEUROLOGICAL: Cranial nerves grossly intact; no facial asymmetry, power and sensation grossly intact. LYMPHATICS: No lymph nodes palpable in the axilla and neck INVESTIGATIONS, reviewed in the clinical context: September 20: White count 8.3 hemoglobin 13.5 platelets 266 September 19: White count 10.6 hemoglobin 14.1 platelets 311 potassium 3.7 creatinine 0.6 Stool occult blood: Positive EKG tracing personally reviewed by me-normal sinus rhythm. 62. CT abdomen pelvis: Short segment colitis involving the descending colon. Assessment and plan: -Acute short segment colitis involving the descending colon. Likely ischemic. Could be infectious. IV Zosyn. Clear liquid diet. Pain control. -MTHFR gene mutation prior history of DVT. Patient takes natural supplements ABIMAEL stockings -Chronic intermittent sinusitis -ADHD Patient been cutting back on Adderall. Care was discussed with the patient has been out of the bedside. Questions answered. GI consulted. Past Medical History Past Medical History: Thyroid Disorder Additional Past Medical History / Comment(s): SINUS PROB, FOUNTAIN'S. ASH'S, NO TX YET. VARICOSE VEINS. History of Any Multi-Drug Resistant Organisms: None Reported Past Surgical History: Tonsillectomy Additional Past Surgical History / Comment(s): VEIN STRIPPING X2. LASIK RT EYE. Past Anesthesia/Blood Transfusion Reactions: No Reported Reaction Additional Past Anesthesia/Blood Transfusion Reaction / Comment(s): PONV R/T PAIN RX GIVEN IV. Past Psychological History: ADD/ADHD Smoking Status: Never smoker Past Alcohol Use History: Occasional Past Drug Use History: None Reported - Past Family History Mother Family Medical History: No Reported History Medications and Allergies Home Medications Medication Instructions Recorded Confirmed Type Dextroamphetamine/Amphetamine 20 mg PO BID /02/0409/19/23 History [Adderall] Acetaminophen Tab [Tylenol] 500 mg PO Q6HR PRN tab 09/20/23 Rx Amoxic-Pot Clav 875-125Mg 1 tab PO BID #10 tab 09/20/23 Rx [Augmentin 875-125] Famotidine [Pepcid] 20 mg PO BID #30 tab 09/20/23 Rx Allergies Allergy/AdvReac Type Severity Reaction Status Date / Time No Known Allergies Allergy Verified 09/19/23 21:53 Physical Exam Vitals: Vital Signs Temp Pulse Pulse Resp BP BP Pulse Ox 09/20/23 07:54 97.5 F L 96 16 129/84 97 09/20/23 06:02 81 18 100/65 99 09/19/23 23:00 87 18 160/62 99 09/19/23 21:13 98 18 150/79 98 09/19/23 18:59 68 16 156/103 98 09/19/23 17:58 97.7 F 101 H 16 154/86 98 Intake and Output 09/19/23 09/20/23 09/20/23 22:59 06:59 14:59 Other: Weight 72.575 kg Results CBC & Chem 7: 09/20/23 09:00 09/19/23 18:40
--- NOTE | 2023-09-20 20:45 | P.DS ---
Providers Date of admission: 09/19/23 20:37 Expected date of discharge: 09/20/23 Attending physician: Braxton Neil Consults: 09/19/23 20:35 Consult Physician Routine Consulting Provider: Mago Bowie Consult Reason/Comments: gi bleed, abdominal pain Do you want consulting provider notified?: Yes Primary care physician: Julien Franco [facility] Course: Chief Complaint: Blood per rectum This is a pleasant 43-year-old patient follows with Dr. Franco. Chronic stable medical conditions include MT HFR gene mutation. Patient's had a prior DVT and superficial vein thrombosis. Patient takes natural medications for the same including tumeric. Also has ADHD. Has been trying to cut back her medications. Does get bouts of sinusitis. 2 days ago patient and family members had burgers. She brought some back home. Vomited up the left over and had it. Later patient started having cramping in the lower abdomen. Middle of the night. Had a few episodes of passing blood.. Pain in the deep pelvic area. No fever no chills. Tired. Patient accompanied by her at the bedside. Patient seen by Dr. Harrison Bowie. I discussed with her. Patient was discharged on Augmentin for 5 days. Soft bland diet. This was discussed with patient over the phone. Past medical history to include: Chronic intermittent sinusitis. ADHD. GERD. MT HFR gene mutation with prior DVT. Social history: Respiratory therapist. Alcohol occasionally. No smoking. . Physical examination: VITAL SIGNS: I 0.1, 75, 16, 121/70, 97% room air GENERAL: Comfortable EYES: Pupils equal. Conjunctiva normal. HEENT: External appearance of nose and ears normal, oral cavity grossly normal. NECK: JVD not raised; masses not palpable. HEART: First and second heart sounds are normal; no edema. LUNGS: Respiratory rate normal; clear to auscultation. ABDOMEN: Soft, mild left lower quadrant tenderness, liver spleen not palpable, no masses palpable. PSYCH: Alert and oriented x3; mood and affect normal. MUSCULOSKELETAL:No Clubbing/cyanosis;muscles-grossly intact INVESTIGATIONS, reviewed in the clinical context: September 20: White count 8.3 hemoglobin 13.5 platelets 266 September 19: White count 10.6 hemoglobin 14.1 platelets 311 potassium 3.7 creatinine 0.6 Stool occult blood: Positive EKG tracing personally reviewed by me-normal sinus rhythm. 62. CT abdomen pelvis: Short segment colitis involving the descending colon. Assessment and plan: -Acute short segment colitis involving the descending colon. Likely ischemic. Could be infectious. IV Zosyn. Clear liquid diet. Pain control. Discharge in Augmentin 875 twice a day for 5 days. Soft bland diet Follow-up with Dr. Harrison Bowie outpatient -MTHFR gene mutation prior history of DVT. Patient takes natural supplements ABIMAEL stockings -Chronic intermittent sinusitis -ADHD Patient been cutting back on Adderall. Disposition: Home Patient Condition at Discharge: Fair Plan - Discharge Summary Discharge Rx Participant: Yes New Discharge Prescriptions: New Amoxic-Pot Clav 875-125Mg [Augmentin 875-125] 1 tab PO BID #10 tab Famotidine [Pepcid] 20 mg PO BID #30 tab Acetaminophen Tab [Tylenol] 500 mg PO Q6HR PRN tab PRN Reason: Fever And/ Or Pain Continue Dextroamphetamine/Amphetamine [Adderall] 20 mg PO BID Discharge Medication List Dextroamphetamine/Amphetamine [Adderall] 20 mg PO BID 01/21/17 [History] Acetaminophen Tab [Tylenol] 500 mg PO Q6HR PRN tab 09/20/23 [Rx] Amoxic-Pot Clav 875-125Mg [Augmentin 875-125] 1 tab PO BID #10 tab 09/20/23 [Rx] Famotidine [Pepcid] 20 mg PO BID #30 tab 09/20/23 [Rx] Follow up Appointment(s)/Referral(s): Julien Franco DO [Primary Care Provider] - 1-2 days Mago Bowie MD [STAFF PHYSICIAN] - 1 Week (f/u 1-2 weeks in office, will schedule outpatient colonoscopy at that time) Activity/Diet/Wound Care/Special Instructions: Stay on clear liquid diet today and tomorrow. Then advanced to soft diet and low fiber diet for 1 week Discharge Disposition: HOME SELF-CARE
== END 2023-09-20 18:30 | disposition home or self-care (01) ==
LOC: EC 17:34 → 6NMEDSUR 20:37
PROVIDERS: ADMIT Hospitalist; ATTEND Hospitalist
DX: K52.9 Noninfective gastroenteritis and colitis, unspecified (principal); E06.3 Autoimmune thyroiditis; K21.9 Gastro-esophageal reflux disease without esophagitis; E72.12 Methylenetetrahydrofolate reductase deficiency; F90.9 Attention-deficit hyperactivity disorder, unspecified type; Z86.718 Personal history of other venous thrombosis and embolism; Z79.82 Long term (current) use of aspirin; Z79.899 Other long term (current) drug therapy
CPT/HCPCS: 96365; 96366; 96376 ×2; 96374; 96375; 99285; 36415; 86900; 86901; 80053; 85652; 85025; 85027; 86850; 86140; 82272; 74177; G0378 ×2; J2543; J2270 ×2; J2405; Q9967